=== PATIENT | male | born 1975 | race Caucasian/White ===

== ENCOUNTER 2025-05-08 11:28 | Outpatient (CLI) | payer MEDICAID ==
--- NOTE | 2025-05-08 13:56 | ELECTROCARDIOGRAPH REPORT ---
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 Lalita Caldera Measurements Intervals [place] Rate: 54 P: 58 HI: 141 QRS: 37 QRSD: 95 T: 31 QT: 470 QTc: 446 Interpretive Statements Sinus bradycardia Abnormal R-wave progression, early transition Electronically Signed On 05-08-2025 15:28:[address] Lalita Caldera Please click the below link to view image of tracing.
== END 2025-05-08 23:59 | disposition home or self-care (01) ==
LOC: RAD 11:28
PROVIDERS: ATTEND Physician Assistant
DX: R00.1 Bradycardia, unspecified (principal); F11.20 Opioid dependence, uncomplicated; R94.31 Abnormal electrocardiogram [ECG] [EKG]
CPT/HCPCS: 93005